=== PATIENT | female | born 1970 | race Caucasian/White ===

== ENCOUNTER 2016-05-23 22:05 | Emergency (ER) | payer OTHER ==
[~2016-05-23] VITALS: Ht 170.2 cm; Wt 72.7 kg
[2016-05-23 22:13] VITALS: BP 156/92; PULSE 94; RESP 16; O2SAT 100
--- NOTE | 2016-05-23 22:22 | ED.REPORT ---
HPI-General Illness Date of Service May 23, 2016 ED Provider: Dr. Pete Pt is a 45 y/o female w/ a hx of diabetes, hypertension, presenting to the ED due to intermittent spinning sensation dizziness onset about 6 days ago. Pt reports that the morning after Mao her blood sugar was 1000. She took herself off her medication for 5 months because she believed she was cured. She has since restarted her medication. She saw her PCP about this dizziness and was told she had vertigo. She comes to the ED today because she is experiencing increasing episodes of vertigo which have not improved. She was not placed on Meclizine. Her dizziness is brought on by rotating her head to the left or to the back. She experiences nausea during these episodes. She denies focal numbness or weakness, headache, fever. Nursing Notes Stated Complaint: DIZZINESS Chief Complaint: General Complaint Nursing Notes Reviewed: Yes Allergies: Coded Allergies: Sulfa (Sulfonamide Antibiotics) (Unverified Adverse Reaction, Severe, Headache, 03/23/15) Penicillins (Unverified Adverse Reaction, Unknown, 03/23/15) Scheduled Meclizine (Bonine) 25 Mg Tab.chew 25 MG PO TID Scheduled PRN Ondansetron ODT (Ondansetron ODT) 8 Mg Tab.rapdis 8 MG PO QID PRN PRN For Nausea General Time Seen by MD: 22:22 Chief Complaint Dizziness Hx Obtained From: Patient Arrived By: Walk-in Past Medical History Past Medical History Hypertension Asthma Diabetes mellitus Benign paroxysmal positional vertigo Past Surgical History Tubal ligation Family History Noncontributory Smoking History Unknown if Ever Smoker Social History Other Social History: Lives with children, Local resident Ambulatory Status Independent Review of Systems Full Review of Systems Constitutional: Denies: Chills, Fever Neurologic: Reports: Dizziness, Spinning sensation, Denies: Bladder dysfunction, Bowel dysfunction, Focal weakness, Headache, Numbness, Seizure, Shaking, Slurred speech, Weakness Complete sys rev & neg: except as marked. Physical Exam Vital Signs Vital Signs Date Time Temp Pulse Resp B/P Pulse Ox O2 Delivery O2 Flow Rate FiO2 05/23/16 23:03 91 135/80 98 Room Air 05/23/16 22:13 36.2 94 16 156/92 100 Room Air Initial VS: Reviewed, Vital signs normal ENT: Mucous membranes moist, Conjunctiva normal, No scleral icterus Neck: Supple, Full range of motion Respiratory: Breath sounds normal, Clear to auscultation, No respiratory distress Cardiovascular: Regular rate & rhythm, Heart sounds normal, Intact distal pulses Abdomen / GI: Soft, No distention Extremities: Vascular intact Skin: Warm, Dry, No cyanosis Psychiatric: Mood/affect normal, Behavior normal, Normal thought content General/Constitutional: Awake, Alert, No acute distress, Well appearing, Cooperative, Not toxic appearing Head / Eyes: Atraumatic, Normocephalic, PERRL Nystagmus bilaterally with lateral gaze, more prominent with leftward gaze. Neurologic: Oriented X3, Speech NL, No motor deficits, No sensory deficits, CN II - XII intact, Memory NL Re-Eval/Medical Decision Med Decision/Clinical Course 45-year-old with diabetes presents with fairly classic benign paroxysmal positional vertigo. Demonstrated and discussed the role of otoliths and maneuvers to be done at home. Written information provided. Meclizine when necessary. Neurologic exam here is normal with the exception of nystagmus with lateral gaze, worse with leftward gaze. Character of her vertigo is clearly peripheral, positional, and paroxysmal. Time of Eval: 22:34 Re-Evaluation/Progress Note: Pt rechecked. Informed pt of plan for treatment. Pt understands and agrees with plan for treatment. F/U and RTER warnings given. All questions addressed. Counseled Regarding: Diagnosis, Need for follow-up, When/why to return to ED Discharge & Departure Primary Impression: Benign paroxysmal positional vertigo Laterality: left Qualified Code: H81.12 - Benign paroxysmal vertigo, left ear Additional Impression: Diabetes Diabetes mellitus type: type 2 Diabetes mellitus complication status: with unspecified complications Qualified Code: E11.8 - Type 2 diabetes mellitus with unspecified complications Disposition: Home Discharge Condition All VS Reviewed: Yes Condition: Stable Patient Instructions: Benign Paroxysmal Positional Vertigo (ED) Additional Instructions: Continue taking your diabetes medicines. Meclizine three times daily if needed for dizziness Zofran up to four times daily if needed for nausea Please review the enclosed information including the instructions for head positioning to improve your vertigo. Follow-up with your doctor in the office. Follow-up with your nose and throat if here vertigo is persistent Referrals: Ander De La Torre MD (PCP) Scribe Attestation Portions of this note were transcribed by Jose Vizcaino. I, Dr. Pete personally performed the history, physical exam and medical decision-making; I reviewed and confirmed the accuracy of the information in the transcribed note. Signed by Gali Maxwell, 05/23/162222 copies to: Ander De La Torre MD, Christopher W MD May 23, 2016 22:22 JOSE VIZCAINO May 23, 2016 22:32
[2016-05-23] MEDS ORDERED: Ondansetron 8 mg ODT Tablet PO ONE (22:35)
[2016-05-23] MEDS ORDERED: MECL-114 PO (22:38)
[2016-05-23] MEDS ORDERED: ONDA8TAB10 PO (22:38)
[2016-05-23 23:03] VITALS: BP 135/80; PULSE 91; O2SAT 98
== END 2016-05-23 23:04 | disposition home or self-care (01) ==
LOC: SED 22:05
DX: H81.12 Benign paroxysmal vertigo, left ear (principal); E11.9 Type 2 diabetes mellitus without complications; I10 Essential (primary) hypertension; J45.909 Unspecified asthma, uncomplicated; Z86.2 Personal history of diseases of the blood and blood-forming organs and certain disorders involving the immune mechanism; Z88.0 Allergy status to penicillin; Z88.2 Allergy status to sulfonamides

== ENCOUNTER 2017-01-03 15:54 | Emergency (ER) | payer OTHER ==
[~2017-01-03 15:54] MED LIST: MECL-114 PO; ONDA8TAB10 PO
[2017-01-03 16:08] VITALS: BP 140/96; PULSE 89; RESP 14; O2SAT 99
--- NOTE | 2017-01-03 16:17 | ED.REPORT ---
HPI-General Illness Date of Service Jan 03, 2017 ED Provider: History of Present Illness: started about 20 hours ago left lower leg. Some itching. primary care is keane. took aleve and baking soda Patient reporting spider bite to lower leg. Did not see spider. She is reporting the redness and swelling is less today than yesterday. Nursing Notes Stated Complaint: BITE ON LEFT LEG Chief Complaint: Skin Rash/Abscess Nursing Notes Reviewed: Yes Allergies: Coded Allergies: Sulfa (Sulfonamide Antibiotics) (Unverified Adverse Reaction, Severe, Headache, 03/23/15) Penicillins (Unverified Adverse Reaction, Unknown, 03/23/15) Scheduled Meclizine (Bonine) 25 Mg Tab.chew 25 MG PO TID Scheduled PRN Ondansetron ODT (Ondansetron ODT) 8 Mg Tab.rapdis 8 MG PO QID PRN PRN For Nausea General Time Seen by MD: 16:17 Chief Complaint Other (insect bite) Hx Obtained From: Patient Sudden in Onset?: Yes Onset Occurred: Yesterday Symptom Duration: Since onset Past Medical History Past Medical History Hypertension Asthma Diabetes mellitus Benign paroxysmal positional vertigo Past Surgical History Tubal ligation Family History Noncontributory Smoking History Never Smoker Social History Alcohol Use: Denies alcohol use Drug Use: Denies drug use Other Social History: Lives with children, Local resident Occupation lives with family 01/03/2017 Ambulatory Status Independent Review of Systems Full Review of Systems Constitutional: Denies: Chills, Fatigue, Fever Ears / Nose / Throat: Denies: Ear drainage left, Ear drainage right Cardiovascular: Denies: Chest pain Female: Denies: Dysuria Allergy / Immune: Denies: Allergic reaction Psychiatric: Denies: Agitation Physical Exam Vital Signs Vital Signs Date Time Temp Pulse Resp B/P Pulse Ox O2 Delivery O2 Flow Rate FiO2 01/03/17 17:51 36.5 81 16 130/85 96 01/03/17 17:42 36.5 81 16 130/85 96 01/03/17 16:08 36.1 89 14 140/96 99 Initial VS: Reviewed, Vital signs normal General/Constitutional: Well-developed, Well-nourished Head / Eyes: Atraumatic, Normocephalic, PERRL ENT: Mucous membranes moist, Conjunctiva normal, No scleral icterus Neck: Supple, Non-tender, Full range of motion Respiratory: Breath sounds normal, Clear to auscultation, No respiratory distress Cardiovascular: Regular rate & rhythm, Heart sounds normal, Intact distal pulses Abdomen / GI: Soft, Non-tender, No guarding, No rebound, No distention Back: No CVA tenderness Lymphatic: No lymphadenopathy Extremities: Vascular intact, Neuro intact, No swelling, No tenderness Skin: Warm, Dry, No cyanosis Neurologic: Alert, Oriented, Nonfocal Psychiatric: Mood/affect normal, Behavior normal, Normal thought content General/Constitutional: Awake, Alert, No acute distress, Well appearing, Well developed, Well hydrated, Well nourished, Cooperative, Not toxic appearing Head / Eyes: Atraumatic, Normocephalic, PERRL, EOMI ENT: Atraumatic, Airway patent, Mucous membranes moist, Pharynx NL Respiratory / Chest: Atraumatic, Breath sounds NL, Breath sounds = bilat, No respiratory distress Cardiovascular: Heart rate NL, Regular rhythm, Heart sounds NL, No gallop left lower leg with what appears to be mosquito bite with mild erthyma extending distally from bite. No increased warmth Re-Eval/Medical Decision Med Decision/Clinical Course 46 year old female presents to the ER for evualation of waht she calls a spider bite to the lower left leg. mosquito bite is visibole with mild erthyma extending distally for bite site. No increased warmth. No sign of infection. Discharge & Departure Primary Impression: Insect bite Encounter type: initial encounter Qualified Code: W57.XXXA - Bitten or stung by nonvenomous insect and other nonvenomous arthropods, initial encounter Disposition: Home Patient Instructions: Insect Bite or Sting (ED) Additional Instructions: The exam is very reassuring. There is mild erthyma without increasing warmth. Use allergy medication daily for 5 days. This should be fairly resolved in 3 to 4 days. Return is the mild piong turns bright red and increases in warmth. Please follow with Dr. Keane as needed. Enjoy the last little bit of summer that we have. Referrals: Addison Keane DO EDSupervising Provider for APC: Chin Pierson MD Attending Statement I saw and evaluated the patient in conjunction with the [employer]. I agree with the plan and findings as documented above. In brief, 46-year-old female presenting to the ED for evaluation a area of itching to her leg, consistent with an insect bite. Well appearing, no acute distress. Nonlabored respirations. Good peripheral perfusion. RRR. No erythema or warmth appreciated. Given reassuring exam, plan discharge home w/ careful return precautions, close outpatient follow up. Patient agreeable to plan as stated, no further questions. copies to: Addison Keane William B MD Jan 03, 2017 16:17 Brandi Packer Jan 03, 2017 16:57
[2017-01-03 17:42] VITALS: BP 130/85; PULSE 81; RESP 16; O2SAT 96
[2017-01-03 17:51] VITALS: BP 130/85; PULSE 81; RESP 16; O2SAT 96
== END 2017-01-03 17:52 | disposition home or self-care (01) ==
LOC: SED 15:54
DX: S80.862A Insect bite (nonvenomous), left lower leg, initial encounter (principal); W57.XXXA Bitten or stung by nonvenomous insect and other nonvenomous arthropods, initial encounter; Y93.9 Activity, unspecified; Y92.9 Unspecified place or not applicable; Y99.9 Unspecified external cause status; I10 Essential (primary) hypertension; E11.9 Type 2 diabetes mellitus without complications; Z88.0 Allergy status to penicillin; Z88.2 Allergy status to sulfonamides